=== PATIENT | female | born 1975 | race Caucasian/White ===

== ENCOUNTER 2022-11-21 19:42 | Emergency (ER) | payer OTHER ==
[2022-11-21 20:02] VITALS: BMI 20.8
[2022-11-21] MEDS: ALBUTEROL SO4 0.083% IH SOL 2.5 MG/3 ML VIAL.NEB. NEB SCH ×2 (20:45→21:13)
[2022-11-21 21:16] LABS: EOS % 0.5 % (0-4.5); HEMATOCRIT 41.4 % (32.4-45.2); LYMPH % 15.6 % (8-40); MCH 30.2 pg (25.7-33.7); MCHC 33.7 g/dl (32.0-36.0); MEAN CELL VOLUME 89.4 fl (80-96); MEAN PLT VOLUME 8.5 fl (7.5-11.1); MONO % 7.4 % (3.8-10.2); NEUT % 75.5 % (42.8-82.8); PLATELET COUNT 233 10^3/uL (134-434); RBC 4.63 M/mm3 (3.60-5.2); WHITE BLOOD COUNT 7.4 K/mm3 (4.0-10.0)
[2022-11-21 21:43] LABS: POTASSIUM 3.7 mmol/L (3.5-5.1)
[2022-11-21 21:45] LABS: CALCIUM 8.5 mg/dL (8.5-10.1)
[2022-11-21 21:46] LABS: ALBUMIN 4.1 g/dl (3.4-5.0); BLOOD UREA NITROGEN 6.5 mg/dL (7-18)
[2022-11-21 21:48] LABS: CREATININE 0.7 mg/dL (0.55-1.3)
[2022-11-21 21:50] LABS: BILIRUBIN,TOTAL 0.7 mg/dL (0.2-1)
[2022-11-21 21:51] LABS: TOT PROT 7.1 g/dl (6.4-8.2)
[2022-11-21] MEDS ORDERED: ALBUTEROL SO4 HFA INHALER IH ONE ×2 (22:09→22:21)
[2022-11-21 22:40] VITALS: BP 122/87
[2022-11-21 22:45] VITALS: PULSE 96; RESP 19; TEMP 99.9
== END 2022-11-21 23:00 | disposition home or self-care (01) ==
LOC: JER 19:42
PROC: 3E0F7GC Introduction of Other Therapeutic Substance into Respiratory Tract, Via Natural or Artificial Opening (ICD-10-PCS; principal; 2022-11-21)
PROC: 3E0F7GC Introduction of Other Therapeutic Substance into Respiratory Tract, Via Natural or Artificial Opening (ICD-10-PCS; 2022-11-21)
DX: R06.02 Shortness of breath (principal); R07.89 Other chest pain; R42 Dizziness and giddiness; R41.840 Attention and concentration deficit; R53.83 Other fatigue; R11.0 Nausea; R06.00 Dyspnea, unspecified; Z20.822 Contact with and (suspected) exposure to COVID-19
CPT/HCPCS: 0241U-QW; 36415; 71045-TC-FY; 80053; 84484; 85025; 93005; 93010; 99285-25